=== PATIENT | female | born 1995 ===

== ENCOUNTER 2018-05-12 09:47 | Emergency (ER) | payer MEDICAID ==
[2018-05-12 10:55] VITALS: BMI 40.7
--- NOTE | 2018-05-12 11:42 | ED PDOC ---
HPI: Back Time Seen by Provider: 05/12/18 10:39 Chief Complaint (Nursing): Back Pain History Per: Patient History/Exam Limitations: no limitations Current Symptoms Are (Timing): Still Present Additional Complaint(s): 23 yo F c/o dysuria and urinary frequency for the past few days associated with mild discomfort to her lower back. Reports no trauma, injury, fever, chills, N/V , abdominal pain, vaginal bleeding/discharge, urinary or bowel incontinence. Has no other complaints. PMD Yin Past Medical History Vital Signs: Last Vital Signs Temp 98.2 F 05/12/18 09:55 Pulse 60 05/12/18 09:55 Resp 18 05/12/18 09:55 BP 122/76 05/12/18 09:55 Pulse Ox 100 05/12/18 09:55 - Surgical History Surgical History: Tonsillectomy - Family History Family History: States: No Known Family Hx - Home Medications Home Medications: Ambulatory Orders Medication Instructions Recorded Nitrofurantoin Macrocrystals 100 mg PO BID #20 cap 05/12/18 [Macrobid] Phenazopyridine [Pyridium] 200 mg PO BID #6 tab 05/12/18 - Allergies Allergies/Adverse Reactions: Allergies Allergy/AdvReac Type Severity Reaction Status Date / Time sulfamethoxazole Allergy RASH Verified 05/12/18 10:41 [From Bactrim] trimethoprim [From Bactrim] Allergy RASH Verified 05/12/18 10:41 Review of Systems Constitutional: Negative for: Fever, Malaise Cardiovascular: Negative for: Chest Pain, Palpitations Respiratory: Negative for: Cough, Shortness of Breath Gastrointestinal: Negative for: Nausea, Vomiting, Abdominal Pain, Diarrhea Genitourinary Female: Positive for: Dysuria, Frequency Musculoskeletal: Positive for: Back Pain. Negative for: Neck Pain Skin: Negative for: Rash, Lesions Physical Exam - Reviewed Vital Signs Reviewed: Yes - Physical Exam Appears: Positive for: Well, Non-toxic, No Acute Distress Head Exam: Positive for: ATRAUMATIC, NORMAL INSPECTION, NORMOCEPHALIC Skin: Positive for: Normal Color, Warm, DRY Neck: Positive for: Normal, Painless ROM Cardiovascular/Chest: Positive for: Regular Rate, Rhythm. Negative for: Murmur Respiratory: Positive for: Normal Breath Sounds. Negative for: Rhonchi, Wheezing Gastrointestinal/Abdominal: Positive for: Normal Exam, Soft. Negative for: Tenderness, Guarding, Rebound Back: Positive for: Normal Inspection. Negative for: L CVA Tenderness, R CVA Tenderness, Vertebral Tenderness Extremity: Positive for: Normal ROM. Negative for: Deformity, Swelling Neurologic/Psych: Positive for: Alert, termite renewal inspector II-XII (intact), Oriented (x3). Negative for: Motor/Sensory Deficits - ECG O2 Sat by Pulse Oximetry: 100 Medical Decision Making Medical Decision Making: Impression : UTI Plan : - Uhcg - Udip - Ucx Uhcg (-) Udip +small leuks / (-) nitrates Diagnostic results d/w the patient in great detail. Diagnosis of UTI d/w the patient. Medicated with macrobid po and pyridium po. Based on history, exam and diagnostic results, plan will be for outpatient follow up. Patient instructed to follow-up with pmd in 1-2 days without fail. Advised to take medication as prescribed. Return to the emergency room at any time for any new or worsening symptoms. Patient states she fully agrees with and understands discharge instructions. States that she agrees with the plan and disposition. Verbalized and repeated discharge instructions and plan. I have given the patient opportunity to ask any additional questions. Disposition - Clinical Impression Clinical Impression: UTI (urinary tract infection) - Patient ED Disposition Is Patient to be Admitted: No Counseled Patient/Family Regarding: Studies Performed, Diagnosis, Need For Followup, Rx Given - Disposition Disposition: Routine/Home Disposition Time: 11:45 Condition: STABLE Additional Instructions: Thank you for letting us take care of you today. You were treated for UTI. The emergency medical care you received today was directed towards the acute presenting symptoms. If you were prescribed any medication, please fill it and give as directed. It may take several days for your symptoms to resolve. Return to the Emergency Department at any time if symptoms worsen, do not improve, or if any other problems arise. Please contact your doctor in 2 days for re-evaluation and follow up. Bring any paperwork you were given at discharge with you along with any medications to your follow up visit. Our treatment cannot replace ongoing medical care by a primary care provider (PCP) outside of the emergency department. Thank you for allowing the [facility] team to be part of your care today. If you had a urine culture test done : We will call you regarding any positive results Prescriptions: Nitrofurantoin Macrocrystals [Macrobid] 100 mg PO BID #20 cap Phenazopyridine [Pyridium] 200 mg PO BID #6 tab Instructions: Urinary Tract Infections in Adults
[2018-05-12 12:15] VITALS: BP 120/78; PULSE 78; RESP 19; TEMP 97.5; O2SAT 98
== END 2018-05-12 12:15 | disposition home or self-care (01) ==
LOC: H.ER 09:47
DX: N39.0 Urinary tract infection, site not specified (principal)

== ENCOUNTER 2018-11-01 20:04 | Emergency (ER) | payer MEDICAID ==
[2018-11-01 20:05] VITALS: BMI 40.7
[2018-11-01 21:40] VITALS: BP 109/73; PULSE 96; RESP 16; TEMP 99.4; O2SAT 99
--- NOTE | 2018-11-01 22:49 | ED PDOC ---
History of Present Illness History of Present Illness: 23 y/o female presents for evaluation of flu-like symptoms x 1 day. Patient reports fever of 101F, bodyaches, headache, nasal drainage, and cough. Denies ear pain, vomiting, chest pain, shortness of breath, palpitations, changes in bowel movements, urinary symptoms, recent travel. + sick contacts. No medications taken for relief thus far HPI: Influenza Time Seen by Provider: 11/01/18 22:32 Chief Complaint: Flu-like Symptoms Chief Complaint (Provider): flu-like symptoms History Per: Patient Exam Limitations: no limitations Onset/Duration Of Symptoms: Days (1) Symptoms include: fever, headache, bodyaches, sore throat, cough Past Medical History Reviewed: Historical Data, Nursing Documentation, Vital Signs Vital Signs: Last Vital Signs Temp 99.4 F 11/01/18 21:37 Pulse 96 H 11/01/18 21:37 Resp 16 11/01/18 21:37 BP 109/73 11/01/18 21:37 Pulse Ox 99 11/01/18 21:37 - Medical History PMH: No Chronic Diseases - Surgical History Surgical History: Tonsillectomy - Family History Family History: States: No Known Family Hx - Living Arrangements Living Arrangements: With Family - Home Medications Home Medications: Ambulatory Orders Medication Instructions Recorded Nitrofurantoin Macrocrystals 100 mg PO BID #20 cap 05/12/18 [Macrobid] Phenazopyridine [Pyridium] 200 mg PO BID #6 tab 05/12/18 Ibuprofen [Motrin Tab] 1 tab PO Q6 PRN #20 tab 11/01/18 Oseltamivir Cap [Tamiflu] 75 mg PO BID #9 cap 11/01/18 guaiFENesin/Dextromethorphan 1 - 2 tab PO Q12 PRN #20 tab 11/01/18 [guaiFENesin/DM 600-30 mg] - Allergies Allergies/Adverse Reactions: Allergies Allergy/AdvReac Type Severity Reaction Status Date / Time sulfamethoxazole Allergy RASH Verified 05/12/18 10:41 [From Bactrim] trimethoprim [From Bactrim] Allergy RASH Verified 05/12/18 10:41 Review of Systems ROS Statement: Except As Marked, All Systems Reviewed And Found Negative Constitutional: Positive for: Fever, Chills ENT: Positive for: Nose Discharge Respiratory: Positive for: Cough Physical Exam - Reviewed Nursing Documentation Reviewed: Yes Vital Signs Reviewed: Yes - Physical Exam Appears: Positive for: Well, Non-toxic, No Acute Distress Head Exam: Positive for: ATRAUMATIC, NORMAL INSPECTION, NORMOCEPHALIC Skin: Positive for: Normal Color Eye Exam: Positive for: Normal appearance ENT: Positive for: Normal ENT Inspection Cardiovascular/Chest: Positive for: Regular Rate, Rhythm Respiratory: Positive for: Normal Breath Sounds Gastrointestinal/Abdominal: Positive for: Normal Exam Back: Positive for: Normal Inspection Extremity: Positive for: Normal ROM Neurologic/Psych: Positive for: Alert, Oriented (x3) - ECG O2 Sat by Pulse Oximetry: 99 - Progress ED Course And Treament: -upreg -ibuprofen PO -tamiflu PO Patient educated on findings, will treat for flu-like symptoms with Tamiflu (dose given in ED) Rx Tamiflu, ibuprofen, Mucinex provided upon discharge Advised fluids, rest Follow up PMD within 2-3 days Return precautions given Disposition - Clinical Impression Clinical Impression: Influenza-like symptoms - Patient ED Disposition Is Patient to be Admitted: No Counseled Patient/Family Regarding: Studies Performed, Diagnosis, Need For Followup, Rx Given - Disposition Disposition: Routine/Home Disposition Time: 22:49 Condition: IMPROVED Prescriptions: guaiFENesin/Dextromethorphan [guaiFENesin/DM 600-30 mg] 1 - 2 tab PO Q12 PRN #20 tab PRN Reason: cough and congestion Ibuprofen [Motrin Tab] 1 tab PO Q6 PRN #20 tab PRN Reason: Fever >100.4 F Oseltamivir Cap [Tamiflu] 75 mg PO BID #9 cap Instructions: Viral Syndrome (DC) Forms: [employer] (Par[place]ayan), [facility] School/Work Excuse
== END 2018-11-01 23:30 | disposition home or self-care (01) ==
LOC: H.ER 20:04
DX: J11.1 Influenza due to unidentified influenza virus with other respiratory manifestations (principal); Z88.1 Allergy status to other antibiotic agents